=== PATIENT | female | born 1940 ===

== ENCOUNTER 2017-04-27 07:00 | Inpatient (IN) | payer OTHER ==
[~2017-04-27] VITALS: Ht 160 cm; Wt 59.9 kg
[2017-04-27] MEDS ORDERED: COZAAR50 MG PO (08:13)
[2017-04-27] MEDS ORDERED: ALENDRONATE SOD35 MG PO (08:14)
[2017-04-27] MEDS ORDERED: ASA81 MG PO (08:14)
[2017-04-27] MEDS ORDERED: LIPITOR20 MG PO (08:14)
[2017-05-04] MEDS ORDERED: INTEGRA PLUS C1 EACH PO (08:54)
[2017-05-04] MEDS ORDERED: DUI500 PO (08:54)
[2017-05-04] MEDS ORDERED: ACETAMINOPHEN-1 EAC2 PO (08:54)
== END 2017-05-04 13:57 | disposition home or self-care (01) | DRG 483 ==
LOC: O/R 05-03 05:42 → SURH 05-03 05:42 → SURG 05-03 07:00 → SURH 05-03 17:39
PROVIDERS: Orthopaedic Surgery Sports Medicine
PROC: 0RRJ00Z Replacement of Right Shoulder Joint with Reverse Ball and Socket Synthetic Substitute, Open Approach (ICD-10-PCS; principal; 2017-05-03 09:15)
DX: M19.011 Primary osteoarthritis, right shoulder (principal); M75.111 Incomplete rotator cuff tear or rupture of right shoulder, not specified as traumatic